=== PATIENT | female | born 1945 | race Caucasian/White ===

== ENCOUNTER 2019-09-19 04:51 | Emergency (ER) | payer MEDICARE, OTHER ==
[~2019-09-19] VITALS: Ht 157.5 cm; Wt 45.6 kg
[~2019-09-19 04:51] MED LIST: ASPI-515 PO; ASPI325T17 PO; ATOR40TA78 PO; DOXY100T PO; PRED10TA PO; SPIRIVA INH; SYMBICORT INH; VENTOLIN INH
[2019-09-19] MEDS ORDERED: METO-93 PO (05:11)
[2019-09-19] MEDS ORDERED: ALBU0.63 NEB (05:11)
[2019-09-19] MEDS ORDERED: METO25TA91 PO (05:13)
[2019-09-19] MEDS ORDERED: SODIUM CHLORIDE FLUSH 10ML SYR IVF ONE (05:30)
--- NOTE | 2019-09-19 06:08 | NUR ---
URINE SAMPLE SENT
[2019-09-19 06:17] LABS: BASOPHILS # (AUTO) 0.02 x10^3/uL (0-0.1); BASOPHILS % (AUTO) 0 % (0-1); EOSINOPHILS # (AUTO) 0.31 x10^3/uL (0-0.4); EOSINOPHILS % (AUTO) 3 % (1-7); LYMPHOCYTES # (AUTO) 1.36 x10^3/uL (1-3.4); LYMPHOCYTES % (AUTO) 12 % (22-44); MD NO; MEAN CORPUSCULAR HEMOGLOBIN 28.3 pg (27.0-34.8); MEAN CORPUSCULAR HGB CONC 32.5 g/dL (32.4-35.8); MEAN PLATELET VOLUME 8.2 fL (7.4-10.4); MONOCYTES # (AUTO) 1.43 x10^3/uL (0.2-0.8); MONOCYTES % (AUTO) 12 % (2-9); NEUTROPHILS # (AUTO) 8.71 x10^3/uL (1.8-6.8); NEUTROPHILS % (AUTO) 74 % (42-75); PLATELET COUNT 319 x10^3/uL (130-400); RED BLOOD COUNT 4.27 x10^6/uL (3.82-5.3)
[2019-09-19 06:27] LABS: CULTURE INDICATED? YES; MICROSCOPIC INDICATED
[2019-09-19] MEDS ORDERED: ALBUTEROL/IPRATROPIUM 2.5MG/0.5MG, 3 ML NPPB ONE (06:30)
[2019-09-19 06:31] LABS: ALANINE AMINOTRANSFERASE 51 U/L (12-78); ANION GAP 4 mmol/L (5-15); CALCIUM 8.6 mg/dL (8.5-10.1); CHLORIDE 102 mmol/L (98-107); CREATININE 0.65 mg/dL (0.55-1.02)
[2019-09-19 06:35] LABS: ALKALINE PHOSPHATASE 84 U/L (45-117); BILIRUBIN,TOTAL 0.5 mg/dL (0.2-1.0); TOTAL PROTEIN 5.8 g/dL (6.4-8.2); TROPONIN I < 0.015 ng/mL (0.000-0.045)
[2019-09-19] MEDS ORDERED: ALBUTEROL/IPRATROPIUM 2.5MG/0.5MG, 3 ML ONE (06:47)
--- NOTE | 2019-09-19 06:51 | NUR ---
REPORT GIVEN TO CLARK CRISOSTOMO
--- NOTE | 2019-09-19 06:52 | NUR ---
REPORT RECEIVED FROM ANU RN. [place] [facility] THIS [place], NAD NOTED
[2019-09-19 07:17] VITALS: BP 107/39
== END 2019-09-19 07:38 | disposition home or self-care (01) ==
LOC: ED 06:35
DX: J43.9 Emphysema, unspecified (principal); I11.9 Hypertensive heart disease without heart failure; R00.0 Tachycardia, unspecified; Z87.891 Personal history of nicotine dependence
CPT/HCPCS: 36415; 71045; 80053; 81001; 83605; 83880; 84484; 85025; 85379; 87040; 87086; 93005; 94640; 99285